=== PATIENT | male | born 1960 | race African-American/Black ===

== ENCOUNTER → 2019-04-16 | Outpatient (CLI) | payer OTHER ==
--- NOTE | 2019-04-16 10:14 | RAD ---
EXAM: Right knee, 2 views. HISTORY: Pain. COMPARISON: None. FINDINGS: 2 views of the right knee are obtained. There is no fracture, dislocation or subluxation. There is mild tricompartmental spurring. There is trace joint fluid without a significant effusion. IMPRESSION: Mild tricompartmental osteoarthritis of the right knee. Electronically signed by: Jayla King MD (04/16/2019 10:12 AM) [facility] [place]
== END | disposition home or self-care (01) ==
LOC: RAD 09:33
PROVIDERS: ATTEND Surgery
DX: M17.11 Unilateral primary osteoarthritis, right knee (principal); M76.9 Unspecified enthesopathy, lower limb, excluding foot
CPT/HCPCS: 73560